=== PATIENT | male | born 1965 | race Caucasian/White ===

== ENCOUNTER 2017-09-05 12:42 | Inpatient (IN) | payer SELFPAY ==
[2017-09-05] MEDS ORDERED: LEVOFLOXACIN 750 MG/D5W RTU 750 MG/150 ML RTUPB IV ONE (12:54)
[2017-09-05] MEDS ORDERED: NORMAL SALINE 1000 ML 1,000 ML IV ONE (12:54)
--- NOTE | 2017-09-05 12:57 | ER Document Report ---
ED Medical Screen (RME) - General Chief Complaint: Testicular Pain Stated Complaint: RIGHT TESTICULAR PAIN, SWELLING Time Seen by Provider: 09/05/17 12:54 Notes: Patient reports approximate 1 week of increasing right testicular pain and swelling. He also some lower abdominal pain. He has had nausea and decreased appetite. He states is also had fevers. TRAVEL OUTSIDE OF THE [place] IN LAST 30 DAYS: No - Related Data Allergies/Adverse Reactions: No Known Allergies Allergy (Verified 11/12/13 17:20) Past Medical History Pulmonary Medical History: Reports: Hx Asthma Neurological Medical History: Reports: Hx Migraine, Hx Seizures Renal/ Medical History: Denies: Hx Peritoneal Dialysis GI Medical History: Reports: Hx Gastroesophageal Reflux Disease Musculoskeltal Medical History: Reports Hx Musculoskeletal Deformity Psychiatric Medical History: Reports: Hx Depression Traumatic Medical History: Reports: Hx Fractures Past Surgical History: Reports: Hx Orthopedic Surgery - Immunizations Immunizations up to date: Yes Hx Diphtheria, Pertussis, Tetanus Vaccination: Yes Physical Exam - Vital signs Vitals: Temp Pulse Resp BP Pulse Ox 98.4 F 120 H 16 96/68 L 95 09/05/17 12:50 09/05/17 12:50 09/05/17 12:50 09/05/17 12:50 09/05/17 12:50 Course - Vital Signs Vital signs: Temp Pulse Resp BP Pulse Ox 98.4 F 120 H 16 96/68 L 95 09/05/17 12:50 09/05/17 12:50 09/05/17 12:50 09/05/17 12:50 09/05/17 12:50
[2017-09-05 13:46] LABS: HEMATOCRIT 47.5 % (37.9-51.0); HEMOGLOBIN 16.1 g/dL (13.5-17.0); MEAN CORPUSCULAR HEMOGLOBIN 29.1 pg (27.0-33.4); MEAN CORPUSCULAR VOLUME 86 fl (80-97); PLATELET COUNT 253 10^3/uL (150-450); RED BLOOD COUNT 5.54 10^6/uL (4.35-5.55); RED CELL DISTRIBUTION WIDTH 13.7 % (11.5-14.0); WHITE BLOOD COUNT 27.5 10^3/uL (4.0-10.5)
[2017-09-05 13:58] LABS: VENOUS BLOOD BASE EXCESS 1.3 mmol/L; VENOUS BLOOD HCO3 25.3 mmol/L (20-32); VENOUS BLOOD PCO2 38.5 mmHg (35-63); VENOUS BLOOD PH 7.44 (7.30-7.42)
[2017-09-05 14:08] LABS: ALANINE AMINOTRANSFERASE 26 U/L (21-72); ALKALINE PHOSPHATASE 86 U/L (38-126); ANION GAP 7 (5-19); ASPARTATE AMINO TRANSFERASE 32 U/L (17-59); BILIRUBIN,DIRECT 0.4 mg/dL (0.0-0.4); BILIRUBIN,TOTAL 1.4 mg/dL (0.2-1.3); BLOOD UREA NITROGEN 14 mg/dL (7-20); CALCIUM 9.1 mg/dL (8.4-10.2); CARBON DIOXIDE 29 mmol/L (22-30); CHLORIDE 100 mmol/L (98-107); GLUCOSE 119 mg/dL (75-110); SODIUM 135.7 mmol/L (137-145); TOTAL PROTEIN 7.8 g/dL (6.3-8.2)
[2017-09-05 14:14] LABS: ABSOLUTE LYMPHOCYTES# (MANUAL) 1.1 10^3/uL (0.5-4.7); ABSOLUTE MONOCYTES # (MANUAL) 2.2 10^3/uL (0.1-1.4); ABSOLUTE NEUTROPHILS# (MANUAL) 24.2 10^3/uL (1.7-8.2); BAND NEUTROPHILS % (MANUAL) 1 % (3-5); BASOPHILS % (MANUAL) 0 % (0-2); EOSINOPHILS % (MANUAL) 0 % (0-6); LYMPHOCYTES % (MANUAL) 4 % (13-45); MONOCYTES % (MANUAL) 8 % (3-13); SEGMENTED NEUTROPHILS % (MAN) 87 % (42-78); TOTAL CELLS COUNTED 100
[2017-09-05 14:16] LABS: PLATELET COMMENT ADEQUATE; RBC MORPHOLOGY COMMENT NORMO-CYTIC/CHROMIC
[2017-09-05] MEDS ORDERED: VANCOMYCIN HCL INJ 1000 MG VIAL IV ONE (14:16)
--- NOTE | 2017-09-05 14:21 | RADIOLOGY REPORT (SQ) ---
EXAM DESCRIPTION: CT ABD/PELVIS NO ORAL OR IV COMPLETED DATE/TIME: 09/05/2017 2:07 pm REASON FOR STUDY: Inguinal hernia on the right side with pain and di COMPARISON: None. TECHNIQUE: CT scan of the abdomen and pelvis performed without intravenous or oral contrast. Images reviewed with lung, soft tissue, and bone windows. Reconstructed coronal and sagittal MPR images revi ewed. All images stored on PACS. All CT scanners at this facility use dose modulation, iterative reconstruction, and/or weight based d osing when appropriate to reduce radiation dose to as low as reasonably achievable (ALARA). [facility]: Dose Right [facility]: CareDose [facility]: Dose Right [facility]: Teradose 4D [facility]: Smart ClearLine Mobile RADIATION DOSE: CT Rad equipment meets quality standard of care and radiation dose reduction techniq ues were employed. CTDIvol: 5.4 mGy. DLP: 342 mGy-cm.mGy. LIMITATIONS: None. FINDINGS: Along the anterior aspect left lower pole kidney, a 5.5 x 4 cm mass is present worrisome f or primary renal cell tumor. This is best shown on sagittal image 61 and axial image 37. Elsewhere throughout the left kidney and ureter, there are no other significant findings. LOWER CHEST: No significant findings. No nodules or infiltrates. NON-CONTRASTED LIVER, SPLEEN, ADRENALS: Evaluation limited by lack of IV contrast. No identified sign ificant masses. PANCREAS: No masses. No peripancreatic inflammatory changes. GALLBLADDER: No identified stones by CT criteria. No inflammatory changes to suggest cholecystitis. RIGHT KIDNEY AND URETER: No suspicious masses. Assessment limited by lack of IV contrast. 2 mm righ t lower pole intrarenal nonobstructive stone axial image 43. No hydronephrosis or hydroureter. LEFT KIDNEY AND URETER: Left renal mass as above worrisome for malignancy AORTA AND RETROPERITONEUM: No aneurysm. No retroperitoneal masses or adenopathy. BOWEL AND PERITONEAL CAVITY: No obvious masses or inflammatory changes. No free fluid. APPENDIX: Normal. PELVIS, BLADDER, AND ABDOMINAL WALL:No abnormal masses. No free fluid. Bladder normal. BONES: No significant findings. OTHER: No other significant finding. IMPRESSION: 5.5 x 4 cm left lower pole renal mass worrisome for malignancy. 2 mm right lower pole intrarenal nonobstructive stone. COMMENT: Quality ID # [id number]: Final reports with documentation of one or more dose reduction techniques (e.g., Automated exposure control, adjustment of the mA and/or kV according to patient size, use of iterative reconstruction technique) TECHNICAL DOCUMENTATION: JOB ID: [id number] [employer]- All Rights Reserved Reading location - IP/workstation name: [email or web address]
--- NOTE | 2017-09-05 14:23 | ER Document Report ---
ED GI/ - General Chief Complaint: Testicular Pain Stated Complaint: RIGHT TESTICULAR PAIN, SWELLING Time Seen by Provider: 09/05/17 12:54 Mode of Arrival: Ambulatory Information source: Patient Notes: History of complain-52 years old male presents today with one-week history of sudden onset of right scrotal pain which gradually increase to the point today that he is has swelling and it is hard tender associated fever chills nausea is. He denies any abdominal pain but been having pain over the right inguinal region. Denies any diarrhea dysuria frequency denies any other constitutional symptoms. REVIEW OF SYSTEMS: CONSTITUTIONAL : Denies fever, chills, or sweats. Denies recent illness. EENT: Denies eye, ear, throat, or mouth pain or symptoms. Denies nasal or sinus congestion or discharge. Denies throat, tongue, or mouth swelling or difficulty swallowing. CARDIOVASCULAR: Denies chest pain. Denies palpitations or racing or irregular heart beat. Denies ankle edema. RESPIRATORY: Denies cough, cold, or chest congestion. Denies shortness of breath, difficulty breathing, or wheezing. GASTROINTESTINAL: Denies abdominal pain or distention. Denies nausea, vomiting , or diarrhea. Denies blood in vomitus, stools, or per rectum. Denies black, tarry stools. Denies constipation. GENITOURINARY: Denies difficulty urinating, painful urination, burning, frequency, blood in urine, or discharge. MUSCULOSKELETAL: Denies back or neck pain or stiffness. Denies joint pain or swelling. SKIN: Denies rash, lesions or sores. HEMATOLOGIC : Denies easy bruising or bleeding. LYMPHATIC: Denies swollen, enlarged glands. NEUROLOGICAL: Denies confusion or altered mental status. Denies passing out or loss of consciousness. Denies dizziness or lightheadedness. Denies headache. Denies weakness or paralysis or loss of use of either side. Denies problems with gait or speech. Denies sensory loss, numbness, or tingling. Denies seizures. PSYCHIATRIC: Denies anxiety or stress. Denies depression, suicidal ideation, or homicidal ideation. ALL OTHER SYSTEMS REVIEWED AND NEGATIVE. Dictation was performed using [employer] voice recognition software PHYSICAL EXAMINATION: GENERAL: Well-appearing, well-nourished and in no acute distress. HEAD: Atraumatic, normocephalic. EYES: Pupils equal round and reactive to light, extraocular movements intact, sclera anicteric, conjunctiva are normal. ENT: Nares patent, oropharynx clear without exudates. Moist mucous membranes. NECK: Normal range of motion, supple without lymphadenopathy LUNGS: Breath sounds clear to auscultation bilaterally and equal. No wheezes rales or rhonchi. HEART: Regular rate and rhythm without murmurs ABDOMEN: Scaphoid, tender over the right inguinal region, with bulging inguinal canal on coughing. Positive bowel sounds Examination of the genital-right scrotum and large size of goose egg. Which is warm and tender and erythematous. Musculoskeletal: Normal range of motion, no pitting or edema. No cyanosis. NEUROLOGICAL: Cranial nerves grossly intact. Normal speech, normal gait. Normal sensory, motor exams PSYCH: Normal mood, normal affect. SKIN: Warm, Dry, normal turgor, no rashes or lesions noted. History of complain TRAVEL OUTSIDE OF THE [place] IN LAST 30 DAYS: No - Related Data Allergies/Adverse Reactions: No Known Allergies Allergy (Verified 11/12/13 17:20) Past Medical History - Social History Smoking Status: Unknown if Ever Smoked Family History: Reviewed & Not Pertinent Patient has suicidal ideation: No Patient has homicidal ideation: No Pulmonary Medical History: Reports: Hx Asthma Neurological Medical History: Reports: Hx Migraine, Hx Seizures Renal/ Medical History: Denies: Hx Peritoneal Dialysis GI Medical History: Reports: Hx Gastroesophageal Reflux Disease Musculoskeltal Medical History: Reports Hx Musculoskeletal Deformity Psychiatric Medical History: Reports: Hx Depression Traumatic Medical History: Reports: Hx Fractures Past Surgical History: Reports: Hx Orthopedic Surgery - Immunizations Immunizations up to date: Yes Hx Diphtheria, Pertussis, Tetanus Vaccination: Yes Physical Exam - Vital signs Vitals: Temp Pulse Resp BP Pulse Ox 98.4 F 120 H 16 96/68 L 95 09/05/17 12:50 09/05/17 12:50 09/05/17 12:50 09/05/17 12:50 09/05/17 12:50 Course - Re-evaluation Re-evalutation: 09/05/17 15:46 Case was discussed with hospitalist and currently patient being admitted - Vital Signs Vital signs: Temp Pulse Resp BP Pulse Ox 98.4 F 120 H 16 96/68 L 95 09/05/17 12:50 09/05/17 12:50 09/05/17 12:50 09/05/17 12:50 09/05/17 12:50 - Laboratory Result Diagrams: 09/05/17 13:15 09/05/17 13:15 Laboratory results interpreted by me: 09/05/17 09/05/17 09/05/17 13:15 13:15 13:15 WBC 27.5 H Seg Neuts % (Manual) 87 H Band Neutrophils % 1 L Lymphocytes % (Manual) 4 L Abs Neuts (Manual) 24.2 H Abs Monocytes (Manual) 2.2 H VBG pH 7.44 H Sodium 135.7 L Glucose 119 H Total Bilirubin 1.4 H - Diagnostic Test Radiology reviewed: Reports reviewed - 1. Scrotal exam reported by radiologist as epididymitis no torsion 2. CT of the abdomen reported as right renal mass Discharge - Discharge Clinical Impression: Epididymitis with no abscess, Renal mass Leukocytosis Qualifiers: Leukocytosis type: bandemia Qualified Code(s): D72.825 - Bandemia Disposition: ADMITTED INPATIENT Admitting Provider: Hospitalist Unit Admitted: Telemetry
--- NOTE | 2017-09-05 15:11 | RADIOLOGY REPORT (SQ) ---
EXAM DESCRIPTION: U/S SCROTUM W/DOPPLER COMPLETED DATE/TIME: 09/05/2017 3:02 pm REASON FOR STUDY: right teste swollen/painful COMPARISON: None. TECHNIQUE: Static and realtime ferguson scale imaging of the scrotum and testes. Selected color Doppler and spectral images recorded to document blood flow. LIMITATIONS: None. FINDINGS: RIGHT: TESTICLE: Normal size. Normal echotexture. Normal blood flow. No mass. EPIDIDYMIS: Hyperemic compared to the left. HYDROCELE OR VARICOCELE: Small hydrocele. HERNIA OR EXTRA-TESTICULAR MASS: No. OTHER: No other significant finding. LEFT: TESTICLE: Normal size. Normal echotexture. Normal blood flow. No mass. EPIDIDYMIS: Small cyst. HYDROCELE OR VARICOCELE: No. HERNIA OR EXTRA-TESTICULAR MASS: No. OTHER: No other significant finding. IMPRESSION: Right epididymitis. TECHNICAL DOCUMENTATION: JOB ID: [id number] [employer]- All Rights Reserved Reading location - IP/workstation name: [email or web address]
[2017-09-05 16:05] LABS: APPEARANCE,URINE CLEAR; BILIRUBIN,URINE NEGATIVE (NEGATIVE); COLOR,URINE YELLOW; GLUCOSE, URINE NEGATIVE (NEGATIVE); KETONES,URINE NEGATIVE (NEGATIVE); LEUKOCYTE ESTERASE,URINE NEGATIVE (NEGATIVE); NITRITE,URINE NEGATIVE (NEGATIVE); PROTEIN,URINE NEGATIVE (NEGATIVE); URINE SPECIFIC GRAVITY 1.017
[2017-09-05] MEDS ORDERED: OXYCODONE-ACETAMINOPHEN 5-325 MG TABLET PO PRN ×2 (16:56→17:35)
[2017-09-05] MEDS ORDERED: ALBUTEROL SULFATE 0.083% NEB 2.5 MG/3 ML AMPUL NEB PRN (16:56)
[2017-09-05] MEDS ORDERED: ACETAMINOPHEN 325 MG TABLET PO PRN ×2 (16:56→17:35)
[2017-09-05] MEDS ORDERED: ONDANSETRON HCL INJ/PF 4 MG/2 ML SDV IV PRN (16:56)
[2017-09-05] MEDS ORDERED: MEROPENEM 500 MG VIAL IV SCH (17:15)
--- NOTE | 2017-09-05 17:38 | RADIOLOGY REPORT (SQ) ---
EXAM DESCRIPTION: CHEST SINGLE VIEW COMPLETED DATE/TIME: 09/05/2017 5:24 pm REASON FOR STUDY: pneumonia COMPARISON: 11/12/2013 EXAM PARAMETERS: NUMBER OF VIEWS: One view. TECHNIQUE: Single frontal radiographic view of the chest acquired. RADIATION DOSE: NA LIMITATIONS: None. FINDINGS: LUNGS AND PLEURA: No opacities, masses or pneumothorax. No pleural effusion. MEDIASTINUM AND HILAR STRUCTURES: No masses. Contour normal. HEART AND VASCULAR STRUCTURES: Heart normal in size. Normal vasculature. BONES: No acute findings. HARDWARE: None in the chest. OTHER: No other significant finding. IMPRESSION: NO ACUTE RADIOGRAPHIC FINDING IN THE CHEST. TECHNICAL DOCUMENTATION: JOB ID: [id number] [employer]- All Rights Reserved Reading location - IP/workstation name: [email or web address]
[2017-09-05] MEDS ORDERED: MEROPENEM 1 GM in NORMAL SALINE 50 ML IV ONE (19:00)
--- NOTE | 2017-09-05 19:57 | PDOC H&P ---
History of Present Illness Admission Date/PCP: 09/05/17 16:11 Patient complains of: right testicular pain, back pain, subjective fever and chills History of Present Illness: ANGE CARRINGTON JR is a 52 year old male with no significant past medical hx described, presents with complaints of 1 week of right testicular pain and swelling progressively worsening. US of testicles showed a right testicular epididymitis. He desribes back pain for the last couple of months and a 20lb wt. loss without change to diet or activity. Describes progressive fatigue over the last 2 months. Patient with noted right abdominal tenderness on exam. Admitted to constipation and urinary retention with difficulty voiding. 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 He denies any recent or new sexual contact. Described subjective fever and chills in the last 24 hours. He is presenting with low normal range BP and a leukocytosis. His lactic acid is not elevated. 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 ABSENT: visual disturbances Ears: PRESENT: as per HPI. ABSENT: hearing changes Nose, Mouth, and Throat: PRESENT: as per HPI. ABSENT: mouth pain Cardiovascular: PRESENT: as per HPI. ABSENT: edema, palpitations Respiratory: PRESENT: as per HPI. ABSENT: dyspnea Gastrointestinal: PRESENT: abdominal pain, constipation. ABSENT: bloating, dysphagia, hematemesis Musculoskeletal: PRESENT: as per HPI. ABSENT: deformity Integumentary: PRESENT: as per HPI. ABSENT: diaphoresis, erythema Neurological: ABSENT: abnormal gait, abnormal movements, focal weakness Psychiatric: PRESENT: as per HPI. ABSENT: hallucinations Physical Exam Vital Signs: Temp Pulse Resp BP Pulse Ox 98.4 F 120 H 16 96/68 L 95 09/05/17 12:50 09/05/17 12:50 09/05/17 12:50 09/05/17 12:50 09/05/17 12:50 General appearance: PRESENT: no acute distress, thin Head exam: PRESENT: atraumatic, normocephalic Eye exam: PRESENT: EOMI, PERRLA Ear exam: PRESENT: normal external ear exam. ABSENT: bleeding Mouth exam: PRESENT: moist, neck supple Neck exam: PRESENT: full ROM. ABSENT: JVD, tenderness Respiratory exam: ABSENT: accessory muscle use, rales, rhonchi, wheezes Cardiovascular exam: PRESENT: RRR, +S1, +S2 Pulses: PRESENT: normal radial pulses GI/Abdominal exam: PRESENT: normal bowel sounds, tenderness - right upper quadrant tenderness. ABSENT: ascites, distended, guarding Extremities exam: ABSENT: calf tenderness, joint swelling Musculoskeletal exam: PRESENT: full ROM. ABSENT: ambulatory Neurological exam: PRESENT: alert, oriented to person, oriented to place, oriented to time, CN II-XII grossly intact Psychiatric exam: PRESENT: agitated. ABSENT: anxious Focused psych exam: ABSENT: delusional, paranoid Skin exam: ABSENT: abrasion, cyanosis Results Impressions: Scrotum Ultrasound 09/05/17 12:56 IMPRESSION: Right epididymitis. Abdomen/Pelvis CT 09/05/17 13:47 IMPRESSION: 5.5 x 4 cm left lower pole renal mass worrisome for malignancy. 2 mm right lower pole intrarenal nonobstructive stone. Chest X-Ray 09/05/17 16:59 IMPRESSION: NO ACUTE RADIOGRAPHIC FINDING IN THE CHEST. Assessment & Plan - Diagnosis (1) Sepsis Is this a current diagnosis for this admission?: Yes Plan: right testicular swelling and signs of epididymitis on US. checking urine culture, blood cultures x2, checking gonnohrea, chlamydia. giving empiric Levaquin/Vanc/Meropenem: given the complication of adrenal mass. (2) Epididymitis with no abscess Is this a current diagnosis for this admission?: Yes Plan: pending culture work up described above. continue empiric levaquin/meropenem/vancomycin (3) Adrenal mass, right Is this a current diagnosis for this admission?: Yes Plan: Concern for malignancy with description of wt. loss, back pain, and progressive fatigue. consulting Oncology for their input. (4) Leukocytosis Qualifiers: Leukocytosis type: bandemia Qualified Code(s): D72.825 - Bandemia Is this a current diagnosis for this admission?: Yes Plan: unclear if this is soley secondary to testicular infection. Broad spectrum coverage at present until cultures result.
[2017-09-05] MEDS ORDERED: INFLUENZA ADLT QUAD (36MOS+) 2017-18 VAC 0.5 ML SYR IM PRN (20:05)
[2017-09-05] MEDS: DOCUSATE SODIUM 100 MG CAPSULE PO SCH (20:09)
[2017-09-05] MEDS: NORMAL SALINE 1000 ML 1,000 ML IV PRN (20:26)
[2017-09-05] MEDS: CYCLOBENZAPRINE HCL 10 MG TABLET PO SCH (21:39)
[2017-09-05] MEDS: VANCOMYCIN HCL 1,000 MG in DEXTROSE 5%-WATER 250 ML IV SCH (21:40)
[2017-09-06] MEDS: MEROPENEM 1 GM in NORMAL SALINE 50 ML IV SCH ×3 (01:03→17:16)
[2017-09-06 01:29] LABS: CHLAM PCR NOT DETECTED (NOT DETECT); GON PCR NOT DETECTED (NOT DETECT)
[2017-09-06] MEDS: CYCLOBENZAPRINE HCL 10 MG TABLET PO SCH ×3 (05:02→20:55)
[2017-09-06 05:16] LABS: ABSOLUTE BASOPHILS # (AUTO) 0.1 10^3/uL (0.0-0.2); ABSOLUTE EOSINOPHILS # (AUTO) 0.1 10^3/uL (0.0-0.6); ABSOLUTE LYMPHOCYTES (AUTO) 2.4 10^3/uL (0.5-4.7); ABSOLUTE MONOCYTES (AUTO) 1.4 10^3/uL (0.1-1.4); ABSOLUTE NEUT (AUTO) 12.2 10^3/uL (1.7-8.2); BASOPHILS % (AUTO) 0.5 % (0-2); EOSINOPHILS % (AUTO) 0.8 % (0-6); HEMATOCRIT 43.5 % (37.9-51.0); HEMOGLOBIN 14.7 g/dL (13.5-17.0); LYMPHOCYTES % (AUTO) 14.9 % (13-45); MEAN CORPUSCULAR HEMOGLOBIN 29.3 pg (27.0-33.4); MEAN CORPUSCULAR HGB CONC 33.8 g/dL (32.0-36.0); MEAN CORPUSCULAR VOLUME 87 fl (80-97); MONOCYTES % (AUTO) 8.8 % (3-13); PLATELET COUNT 216 10^3/uL (150-450); RED BLOOD COUNT 5.02 10^6/uL (4.35-5.55); RED CELL DISTRIBUTION WIDTH 13.6 % (11.5-14.0); TOTAL CELLS COUNTED % (AUTO) 100 %; WHITE BLOOD COUNT 16.3 10^3/uL (4.0-10.5)
[2017-09-06 05:39] LABS: ANION GAP 7 (5-19); BLOOD UREA NITROGEN 14 mg/dL (7-20); CALCIUM 8.6 mg/dL (8.4-10.2); CARBON DIOXIDE 25 mmol/L (22-30); CHLORIDE 106 mmol/L (98-107); GLUCOSE 82 mg/dL (75-110); POTASSIUM 4.5 mmol/L (3.6-5.0); SODIUM 137.7 mmol/L (137-145)
--- NOTE | 2017-09-06 08:45 | PDOC CONSULTATION ---
Consultation Consult Date: 09/06/17 Consult reason:: Hematology/Oncology Consultation was requested for patient with renal mass on CT and elevated WBC count. History of Present Illness Admission Date/PCP: 09/05/17 16:11 History of Present Illness: ANGE CARRINGTON JR is a 52 year old male who presented with complaints of 1 week of right testicular pain and swelling progressively worsening. US of testicles showed a right testicular epididymitis. He described back pain for the last couple of months and a 20lb wt. loss without change to diet or activity. He also described progressive fatigue over the last 2 months. He was admitted and started on antibiotics. His WBC count on admission was 27.5. CT abd/pelvis on admission showed a 5.5 x 4 cm mass in the lower left kidney. Past Medical History Neurological Medical History: Reports: Migraine, Seizures GI Medical History: Reports: Gastroesophageal Reflux Disease Psychiatric Medical History: Reports: Depression Past Surgical History Past Surgical History: Reports: Orthopedic Surgery - Hands/fingers. Social History Occupation: He is single with 2 kids. He is currently living with his mother. Smoking Status: Unknown if Ever Smoked Cigarettes Packs Per Day: 1 - 1 ppd since age 14 Frequency of Alcohol Use: Occasional Hx Recreational Drug Use: Yes - used methamphetamines 1 week ago Drugs: Other - Met. Hx Prescription Drug Abuse: No - Advance Directive Resuscitation Status: Full Code Family History Family History: COPD Parental Family History Reviewed: Yes - Mother with COPD. Children Family History Reviewed: No Sibling(s) Family History Reviewed.: Yes - Brother with lung cancer. Medication/Allergy Home Medications: No Home Medications 09/05/17 Allergies/Adverse Reactions: No Known Allergies Allergy (Verified 11/12/13 17:20) Review of Systems Constitutional: PRESENT: fever(s), weight loss Eyes: ABSENT: visual disturbances Ears: ABSENT: hearing changes Nose, Mouth, and Throat: ABSENT: sore throat Cardiovascular: ABSENT: chest pain Respiratory: ABSENT: cough Gastrointestinal: ABSENT: constipation, nausea Genitourinary: PRESENT: as per HPI Musculoskeletal: PRESENT: back pain, other - neck pain Integumentary: ABSENT: rash Neurological: ABSENT: confusion, frequent falls Psychiatric: PRESENT: depression Hematologic/Lymphatic: ABSENT: lymphadenopathy Physical Exam Vital Signs: Temp Pulse Resp BP Pulse Ox 98.5 F 85 17 119/78 98 09/06/17 07:09 09/06/17 07:09 09/06/17 07:09 09/06/17 07:09 09/06/17 07:09 Intake & Output 09/05/17 09/06/17 09/07/17 06:59 06:59 06:59 Intake Total 1650 Output Total 520 Balance 1130 Weight 63.2 kg General appearance: PRESENT: no acute distress, well-developed, well-nourished Head exam: PRESENT: normocephalic Eye exam: PRESENT: PERRLA Mouth exam: PRESENT: tongue midline Neck exam: ABSENT: lymphadenopathy, tenderness Respiratory exam: PRESENT: clear to auscultation pranav Cardiovascular exam: PRESENT: RRR Pulses: PRESENT: normal dorsalis pedis pul GI/Abdominal exam: PRESENT: soft, tenderness - RLQ Rectal exam: PRESENT: deferred Extremities exam: ABSENT: pedal edema Musculoskeletal exam: PRESENT: normal inspection Neurological exam: PRESENT: alert, awake, oriented to person, oriented to place Psychiatric exam: PRESENT: appropriate affect Focused psych exam: ABSENT: pressured speech Skin exam: PRESENT: normal color Results Laboratory Results: 09/06/17 04:53 09/06/17 04:53 09/06/17 09/06/17 04:53 04:53 WBC 16.3 H RBC 5.02 Hgb 14.7 Hct 43.5 MCV 87 MCH 29.3 MCHC 33.8 RDW 13.6 Plt Count 216 Seg Neutrophils % 75.0 Lymphocytes % 14.9 Monocytes % 8.8 Eosinophils % 0.8 Basophils % 0.5 Absolute Neutrophils 12.2 H Absolute Lymphocytes 2.4 Absolute Monocytes 1.4 Absolute Eosinophils 0.1 Absolute Basophils 0.1 Sodium 137.7 Potassium 4.5 Chloride 106 Carbon Dioxide 25 Anion Gap 7 BUN 14 Creatinine 0.79 Est GFR ( Amer) > 60 Est GFR (Non-Af Amer) > 60 Glucose 82 Calcium 8.6 Magnesium 2.0 Impressions: Scrotum Ultrasound 09/05/17 12:56 IMPRESSION: Right epididymitis. Abdomen/Pelvis CT 09/05/17 13:47 IMPRESSION: 5.5 x 4 cm left lower pole renal mass worrisome for malignancy. 2 mm right lower pole intrarenal nonobstructive stone. Chest X-Ray 09/05/17 16:59 IMPRESSION: NO ACUTE RADIOGRAPHIC FINDING IN THE CHEST. Status: Image reviewed by me Assessment & Plan - Diagnosis (1) Renal mass Plan: Suspicious for cancer. After discussion with Dr. Delgado, I will order CT C/A with contrast for better evaluation. If still appears malignant, then I would consult urology for consideration of cecy-nephrectomy. (2) Leukocytosis Qualifiers: Leukocytosis type: bandemia Qualified Code(s): D72.825 - Bandemia Is this a current diagnosis for this admission?: Yes Plan: Most likely due to the acute infection. It does appear to be improving. Will continue to monitor. - Plan Summary Plan Summary: Thank you for this consultation. I did discuss the plan with Dr. Singh as well. Fell free to call me directly with any questions or concerns.
[2017-09-06] MEDS: NORMAL SALINE 1000 ML 1,000 ML IV PRN (09:11)
[2017-09-06] MEDS: DOCUSATE SODIUM 100 MG CAPSULE PO SCH ×2 (09:11→17:16)
[2017-09-06] MEDS ORDERED: VANCOMYCIN HCL INJ 1000 MG VIAL IV SCH (10:00)
[2017-09-06] MEDS: VANCOMYCIN HCL 1,000 MG in DEXTROSE 5%-WATER 250 ML IV SCH ×2 (10:22→20:49)
[2017-09-06] MEDS ORDERED: ONDANSETRON HCL INJ/PF 4 MG/2 ML SDV IV PRN (10:30)
[2017-09-06] MEDS: LEVOFLOXACIN 500 MG/D5W RTU 500 MG/100 ML RTUPB IV SCH (12:20)
--- NOTE | 2017-09-06 12:54 | RADIOLOGY REPORT (SQ) ---
EXAM DESCRIPTION: CT ABD/PELVIS WITH IV ORAL COMPLETED DATE/TIME: 09/06/2017 12:07 pm REASON FOR STUDY: Renal mass COMPARISON: CT abdomen pelvis 08/17/2008 Abdominal ultrasound 10/28/2008 CT abdomen pelvis 09/05/2017 TECHNIQUE: CT scan of the abdomen and pelvis performed using helical scanning technique with dynamic intravenous contrast injection. Patient drank oral contrast. Images reviewed with lung, soft tissue , and bone windows. Reconstructed coronal and sagittal MPR images reviewed. Delayed images for evalua tion of the urinary system also acquired. All images stored on PACS. All CT scanners at this facility use dose modulation, iterative reconstruction, and/or weight based d osing when appropriate to reduce radiation dose to as low as reasonably achievable (ALARA). [facility]: Dose Right [facility]: CareDose [facility]: Dose Right [facility]: Teradose 4D [facility]: [place] CONTRAST TYPE AND DOSE: contrast/concentration: Isovue 370.00 mg/ml; Total Contrast Delivered: 68.0 ml; Total Saline Delivered: 65.0 ml RENAL FUNCTION: Creatinine 0.8 RADIATION DOSE: CT Rad equipment meets quality standard of care and radiation dose reduction techniq ues were employed. CTDIvol: 5.6 - 7.4 mGy. DLP: 705 mGy-cm.. LIMITATIONS: None. FINDINGS: On yesterday's non contrasted CT, a 5.5 x 4 cm mass is present along the anterior left low er pole kidney measuring 35 Hounsfield units. On today's post contrasted images, this mass enhances to 67 Hounsfield units, worrisome for a primary left lower pole renal cell neoplasm. There is mild adenopathy in the retroperitoneum just inferior to the level of the left renal vein. A 1.6 x 1 cm left para-aortic lymph node is present on axial image 38. A 1.1 x 0.8 cm aortocaval lymp h node is present on axial image 39. There is no CT evidence of left renal vein thrombosis or IVC thrombus. Remainder of the left kidney is otherwise unremarkable. Left ureter unremarkable. LOWER CHEST: No significant findings. No nodules or infiltrates. LIVER: Normal size. 1.6 cm hemangioma left lobe liver image 14. No dilated ducts. SPLEEN: Normal size. No focal lesions. PANCREAS: No masses. No significant calcifications. No adjacent inflammation or peripancreatic fluid collections. Pancreatic duct not dilated. GALLBLADDER: No identified stones by CT criteria. No inflammatory changes to suggest cholecystitis. ADRENAL GLANDS: No significant masses or asymmetry. RIGHT KIDNEY AND URETER: No solid masses. No significant calcifications. No hydronephrosis or hyd roureter. LEFT KIDNEY AND URETER: As above AORTA AND VESSELS: No aneurysm. No dissection. Renal arteries, SMA, celiac without stenosis. RETROPERITONEUM: Mild para-aortic and aortocaval adenopathy as above BOWEL AND PERITONEAL CAVITY: No masses or inflammatory changes. No free fluid or peritoneal masses. Patient drank oral contrast. No evidence of bowel obstruction. APPENDIX: Normal. PELVIS: No mass. No free fluid. Normal bladder. ABDOMINAL WALL: No masses. No hernias. BONES: No significant or acute findings. OTHER: No other significant finding. IMPRESSION: Mass left lower pole kidney worrisome for primary renal tumor. Abnormal para-aortic lym ph nodes are present at the level of the left renal vein. TECHNICAL DOCUMENTATION: JOB ID: [id number] Quality ID # [id number]: Final reports with documentation of one or more dose reduction techniques (e.g., Au tomated exposure control, adjustment of the mA and/or kV according to patient size, use of iterative reconstruction technique) 2010 [employer]- All Rights Reserved Reading location - IP/workstation name: [email or web address]
--- NOTE | 2017-09-06 21:18 | PDOC PROGRESS REPORT ---
Subjective Progress Note for:: 09/06/17 Subjective:: Discussed with patient the results of his repeat CT Abd/pel with contrast. Urology has been requested to follow him. Patient appears to have a likely left renal malignancy. He is gradually improving on antibiotics for his epididmytis, culture negative at present. Patient is clinically stable. Reason For Visit: POSSIBLE MALIGNANCY, INFECTION Physical Exam Vital Signs: Temp Pulse Resp BP Pulse Ox 98.8 F 100 16 108/61 99 09/06/17 19:36 09/06/17 19:36 09/06/17 19:36 09/06/17 19:36 09/06/17 19:36 Intake & Output 09/05/17 09/06/17 09/07/17 06:59 06:59 06:59 Intake Total 1650 2651 Output Total 520 700 Balance 1130 1951 Weight 63.2 kg General appearance: PRESENT: no acute distress, cooperative Head exam: PRESENT: atraumatic, normocephalic Eye exam: PRESENT: EOMI, PERRLA Ear exam: PRESENT: normal external ear exam. ABSENT: bleeding Mouth exam: PRESENT: moist, neck supple Respiratory exam: ABSENT: crackles, rales, rhonchi, wheezes Cardiovascular exam: PRESENT: RRR, +S1, +S2 Pulses: PRESENT: normal radial pulses, normal dorsalis pedis pul Vascular exam: PRESENT: normal capillary refill. ABSENT: pallor GI/Abdominal exam: PRESENT: normal bowel sounds, tenderness. ABSENT: distended Extremities exam: ABSENT: calf tenderness, joint swelling Musculoskeletal exam: PRESENT: ambulatory, full ROM Neurological exam: PRESENT: alert, oriented to person, oriented to place, oriented to time, oriented to situation, CN II-XII grossly intact Psychiatric exam: ABSENT: agitated, anxious, manic Focused psych exam: ABSENT: delusional, paranoid Skin exam: ABSENT: dry, mottled, pallor Results Laboratory Results: 09/06/17 04:53 09/06/17 04:53 09/06/17 09/06/17 04:53 04:53 WBC 16.3 H RBC 5.02 Hgb 14.7 Hct 43.5 MCV 87 MCH 29.3 MCHC 33.8 RDW 13.6 Plt Count 216 Seg Neutrophils % 75.0 Lymphocytes % 14.9 Monocytes % 8.8 Eosinophils % 0.8 Basophils % 0.5 Absolute Neutrophils 12.2 H Absolute Lymphocytes 2.4 Absolute Monocytes 1.4 Absolute Eosinophils 0.1 Absolute Basophils 0.1 Sodium 137.7 Potassium 4.5 Chloride 106 Carbon Dioxide 25 Anion Gap 7 BUN 14 Creatinine 0.79 Est GFR ( Amer) > 60 Est GFR (Non-Af Amer) > 60 Glucose 82 Calcium 8.6 Magnesium 2.0 Impressions: Scrotum Ultrasound 09/05/17 12:56 IMPRESSION: Right epididymitis. Chest X-Ray 09/05/17 16:59 IMPRESSION: NO ACUTE RADIOGRAPHIC FINDING IN THE CHEST. Abdomen/Pelvis CT 09/06/17 00:00 IMPRESSION: Mass left lower pole kidney worrisome for primary renal tumor. Abnormal para-aortic lymph nodes are present at the level of the left renal vein. Assessment & Plan - Time Time Spent with patient: 15-24 minutes - Inpatient Certification Based on my medical assessment, after consideration of the patient's comorbidities, presenting symptoms, or acuity I expect that the services needed warrant INPATIENT care.: Yes Medical Necessity: Need for IV Antibiotics, Risk of Complication if Not Cared For in Hospital - Plan Summary Plan Summary: (1) Sepsis Is this a current diagnosis for this admission?: Yes Plan: right testicular swelling and signs of epididymitis on US. no growth on urine culture, blood cultures x2, negative gonnohrea, chlamydia. giving empiric Levaquin/Vanc/Meropenem: improving sepsis picture, decreasing leukocytosis. (2) Epididymitis with no abscess Is this a current diagnosis for this admission?: Yes Plan: pending culture work up described above. continue empiric levaquin/meropenem/vancomycin (3) Left kidney mass Is this a current diagnosis for this admission?: Yes Plan: concerning for RCC. Oncology following. consulted Urology. continue supportive care (4) Leukocytosis Qualifiers: Leukocytosis type: bandemia Qualified Code(s): D72.825 - Bandemia Is this a current diagnosis for this admission?: Yes Plan: improving, continue current coverage at present.
[2017-09-07] MEDS: MEROPENEM 1 GM in NORMAL SALINE 50 ML IV SCH ×2 (01:51→09:41)
[2017-09-07] MEDS: CYCLOBENZAPRINE HCL 10 MG TABLET PO SCH ×2 (05:17→13:22)
[2017-09-07 06:33] LABS: HEMATOCRIT 43.6 % (37.9-51.0); HEMOGLOBIN 14.9 g/dL (13.5-17.0); MEAN CORPUSCULAR HEMOGLOBIN 29.5 pg (27.0-33.4); MEAN CORPUSCULAR HGB CONC 34.1 g/dL (32.0-36.0); MEAN CORPUSCULAR VOLUME 86 fl (80-97); PLATELET COUNT 209 10^3/uL (150-450); RED BLOOD COUNT 5.04 10^6/uL (4.35-5.55); RED CELL DISTRIBUTION WIDTH 13.6 % (11.5-14.0); WHITE BLOOD COUNT 7.8 10^3/uL (4.0-10.5)
[2017-09-07 06:50] LABS: ALBUMIN 3.2 g/dL (3.5-5.0); ANION GAP 8 (5-19); BLOOD UREA NITROGEN 19 mg/dL (7-20); CALCIUM 8.5 mg/dL (8.4-10.2); CARBON DIOXIDE 25 mmol/L (22-30); CHLORIDE 104 mmol/L (98-107); GLUCOSE 85 mg/dL (75-110); PHOSPHORUS 3.3 mg/dL (2.5-4.5); POTASSIUM 4.5 mmol/L (3.6-5.0); SODIUM 137.3 mmol/L (137-145)
[2017-09-07 10:45] LABS: VANCOMYCIN,TROUGH 6.2 ug/mL (5.0-20.0)
[2017-09-07] MEDS: DOCUSATE SODIUM 100 MG CAPSULE PO SCH (10:47)
--- NOTE | 2017-09-07 10:47 | PDOC CONSULTATION ---
Consultation Consult Date: 09/07/17 Consult reason:: 1. Right epididymoorchitis. 2. Left renal malignancy, with intraaortocaval and left periaortic eduardo disease. History of Present Illness Admission Date/PCP: 09/05/17 16:11 Past Medical History Pulmonary Medical History: Reports: Asthma Neurological Medical History: Reports: Migraine, Seizures GI Medical History: Reports: Gastroesophageal Reflux Disease Psychiatric Medical History: Reports: Depression Past Surgical History Past Surgical History: Reports: Orthopedic Surgery - Hands/fingers. 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 Hx Prescription Drug Abuse: No - Advance Directive Resuscitation Status: Full Code Family History Family History: COPD Parental Family History Reviewed: No Children Family History Reviewed: No Sibling(s) Family History Reviewed.: No Medication/Allergy Home Medications: No Home Medications 09/05/17 Allergies/Adverse Reactions: No Known Allergies Allergy (Verified 11/12/13 17:20) Physical Exam Vital Signs: Temp Pulse Resp BP Pulse Ox 98.6 F 78 18 121/90 H 100 09/07/17 07:08 09/07/17 07:08 09/07/17 07:08 09/07/17 07:08 09/07/17 07:08 Intake & Output 09/06/17 09/07/17 09/08/17 06:59 06:59 06:59 Intake Total 1650 4271 Output Total 520 1180 Balance 1130 3091 Weight 63.2 kg 66.4 kg Results Laboratory Results: 09/07/17 05:27 09/07/17 09/07/17 05:27 05:27 WBC 7.8 RBC 5.04 Hgb 14.9 Hct 43.6 MCV 86 MCH 29.5 MCHC 34.1 RDW 13.6 Plt Count 209 Sodium 137.3 Potassium 4.5 Chloride 104 Carbon Dioxide 25 Anion Gap 8 BUN 19 Creatinine 0.78 Est GFR ( Amer) > 60 Est GFR (Non-Af Amer) > 60 Glucose 85 Calcium 8.5 Phosphorus 3.3 Albumin 3.2 L Impressions: Scrotum Ultrasound 09/05/17 12:56 IMPRESSION: Right epididymitis. Chest X-Ray 09/05/17 16:59 IMPRESSION: NO ACUTE RADIOGRAPHIC FINDING IN THE CHEST. Abdomen/Pelvis CT 09/06/17 00:00 IMPRESSION: Mass left lower pole kidney worrisome for primary renal tumor. Abnormal para-aortic lymph nodes are present at the level of the left renal vein.
[2017-09-07] MEDS: VANCOMYCIN HCL 1,000 MG in DEXTROSE 5%-WATER 250 ML IV SCH (10:48)
[2017-09-07] MEDS: LEVOFLOXACIN 500 MG/D5W RTU 500 MG/100 ML RTUPB IV SCH (13:21)
[2017-09-07] MEDS ORDERED: CEFTRIAXONE INJ 250 MG VIAL IM ONE ×2 (14:21→15:30)
[2017-09-07 14:46] VITALS: BP 107/69
[2017-09-07] MEDS ORDERED: LIDOCAINE HCL 1% INJ (FOR 250 MG VIAL) INJ ONE (15:30)
[2017-09-07] MEDS ORDERED: MEROPENEM 1 GM in NORMAL SALINE 100 ML IV SCH (18:00)
--- NOTE | 2017-09-07 22:44 | PDOC DISCHARGE SUMMARY ---
General - Admit/Disc Date/PCP Admission Date/Primary Care Provider: 09/05/17 16:11 Discharge Date: 09/07/17 - Discharge Diagnosis (1) Sepsis Is this a current diagnosis for this admission?: Yes (2) Epididymitis with no abscess Is this a current diagnosis for this admission?: Yes (3) Leukocytosis Is this a current diagnosis for this admission?: Yes (4) Renal mass Is this a current diagnosis for this admission?: Yes - Additional Information Resuscitation Status: Full Code Discharge Diet: Regular Discharge Activity: Activity As Tolerated Prescriptions: Acetaminophen [Tylenol 325 mg Tablet] 650 mg PO Q4HP PRN #30 tablet PRN Reason: Levofloxacin [Levaquin 500 mg Tablet] 500 mg PO DAILY #10 tablet Oxycodone HCl/Acetaminophen [Percocet 5-325 mg Tablet] 1 tab PO Q6HP PRN 4 Days #16 tablet PRN Reason: Home Medications: Acetaminophen [Tylenol 325 mg Tablet] 650 mg PO Q4HP PRN #30 tablet 09/07/17 Levofloxacin [Levaquin 500 mg Tablet] 500 mg PO DAILY #10 tablet 09/07/17 Oxycodone HCl/Acetaminophen [Percocet 5-325 mg Tablet] 1 tab PO Q6HP PRN 4 Days #16 tablet 09/07/17 History of Present Illness Patient complains of: Complained of testicular pain History of Present Illness: ANGE CARRINGTON JR is a 52 year old male with no significant past medical hx described, presents with complaints of 1 week of right testicular pain and swelling progressively worsening. US of testicles showed a right testicular epididymitis. He desribes back pain for the last couple of months and a 20lb wt. loss without change to diet or activity. Describes progressive fatigue over the last 2 months. Patient with noted right abdominal tenderness on exam. Admitted to constipation and urinary retention with difficulty voiding. 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 He denies any recent or new sexual contact. Described subjective fever and chills in the last [address] abdomen pelvis showed a left renal mass. A follow-up CT abdomen pelvis with contrast to better define the left renal mass concerning for malignancy. Oncology and urology were consulted on this case. He is presenting with low normal range BP and a leukocytosis. His lactic acid was not elevated. Hospital Course Hospital Course: Patient was given Meropenem, Vancomycin, and Levaquin initially as his epididimytis and left renal mass was further evaluated in the setting of sepsis. Patient's leukocytosis normalized. Gonorrhea and chlamydial testing were negative. Patient's urine and blood cultures were negative for growth. Patient clinically improved during his hospital stay. Vancomycin was discontinued. Patient was de-escalated to Levaquin only. A 250 mg IM shot of ceftriaxone was given. Patient will complete a 10 day course of p.o. Levaquin in the outpatient setting. Patient was given Percocet treatment for his testicular pain. Patient was asked to follow-up with Dr. Snider in urology in the next 2 weeks. Plan has been made to refer him out to a tertiary care center after he completes his course of antibiotics for further evaluation and treatment of his left renal mass which is concerning on CT imaging for being renal cell carcinoma. Abnormal paraortic lymph nodes were also found on CT. Patient was made aware of all these details and is in agreement with the plan. A follow-up with the care clinic is also been requested as this patient does not have a primary care provider and currently has several medical problems in which he would benefit from outpatient guidance. Physical Exam Vital Signs: Temp Pulse Resp BP Pulse Ox 97.4 F 84 18 107/69 96 09/07/17 14:44 09/07/17 14:44 09/07/17 14:44 09/07/17 14:44 09/07/17 14:44 Intake & Output 09/06/17 09/07/17 09/08/17 06:59 06:59 06:59 Intake Total 1650 4271 Output Total 520 1180 Balance 1130 3091 Weight 63.2 kg 66.4 kg General appearance: PRESENT: no acute distress, cooperative Head exam: PRESENT: atraumatic, normocephalic Eye exam: PRESENT: EOMI, PERRLA Ear exam: PRESENT: normal external ear exam. ABSENT: bleeding Mouth exam: PRESENT: moist, neck supple Respiratory exam: ABSENT: crackles, rales, rhonchi, wheezes Cardiovascular exam: PRESENT: RRR, +S1, +S2 Pulses: PRESENT: normal radial pulses, normal dorsalis pedis pul Vascular exam: PRESENT: normal capillary refill. ABSENT: pallor GI/Abdominal exam: PRESENT: normal bowel sounds, tenderness. ABSENT: distended Extremities exam: ABSENT: calf tenderness, joint swelling Musculoskeletal exam: PRESENT: ambulatory, full ROM Neurological exam: PRESENT: alert, oriented to person, oriented to place, oriented to time, oriented to situation, CN II-XII grossly intact Psychiatric exam: ABSENT: agitated, anxious, manic Focused psych exam: ABSENT: delusional, paranoid Skin exam: ABSENT: dry, mottled, pallor Results Laboratory Results: 09/07/17 05:27 09/07/17 09:50 09/07/17 09/07/17 09/07/17 05:27 05:27 09:50 WBC 7.8 RBC 5.04 Hgb 14.9 Hct 43.6 MCV 86 MCH 29.5 MCHC 34.1 RDW 13.6 Plt Count 209 Sodium 137.3 Potassium 4.5 Chloride 104 Carbon Dioxide 25 Anion Gap 8 BUN 19 Creatinine 0.78 0.70 Est GFR ( Amer) > 60 > 60 Est GFR (Non-Af Amer) > 60 > 60 Glucose 85 Calcium 8.5 Phosphorus 3.3 Albumin 3.2 L Impressions: Scrotum Ultrasound 09/05/17 12:56 IMPRESSION: Right epididymitis. Chest X-Ray 09/05/17 16:59 IMPRESSION: NO ACUTE RADIOGRAPHIC FINDING IN THE CHEST. Abdomen/Pelvis CT 09/06/17 00:00 IMPRESSION: Mass left lower pole kidney worrisome for primary renal tumor. Abnormal para-aortic lymph nodes are present at the level of the left renal vein. Qualifiers - * PATEINT BEING DISCHARGED WITH ANY OF THE FOLLOWING DIAGNOSIS?: No Plan Discharge Plan: (1) Sepsis Resolved (2) Epididymitis with no abscess Sent home with 10 days of Levaquin therapy. (3) Left kidney mass concerning for RCC. Urology to follow patient in the next 2-3 weeks, plan to refer them to tertiary care center for left nephrectomy and further workup. (4) Leukocytosis Resolved Discharge plan Discharge disposition was home discharge condition was good discharge diet was regular discharge activities as tolerated Follow-up requested with Dr. Snider in urology in the next 2 weeks Up requested with the care clinic in the next 1 week. Time Spent: Greater than 30 Minutes
== END 2017-09-07 15:30 | disposition home or self-care (01) | DRG 872 ==
LOC: ER 12:42 → EH 16:11 → 4N 19:27
PROVIDERS: ADMIT Internal Medicine; ATTEND Internal Medicine
PROC: 3E0F73Z Introduction of Anti-inflammatory into Respiratory Tract, Via Natural or Artificial Opening (ICD-10-PCS; principal; 2017-09-07)
DX: A41.9 Sepsis, unspecified organism (principal); C64.2 Malignant neoplasm of left kidney, except renal pelvis; N45.1 Epididymitis; N28.89 Other specified disorders of kidney and ureter; N45.3 Epididymo-orchitis; J45.909 Unspecified asthma, uncomplicated; G43.909 Migraine, unspecified, not intractable, without status migrainosus; K21.9 Gastro-esophageal reflux disease without esophagitis; F32.9 Major depressive disorder, single episode, unspecified; F17.210 Nicotine dependence, cigarettes, uncomplicated; R63.4 Abnormal weight loss; Z68.21 Body mass index [BMI] 21.0-21.9, adult; Z79.899 Other long term (current) drug therapy; Z83.6 Family history of other diseases of the respiratory system; Z80.1 Family history of malignant neoplasm of trachea, bronchus and lung
CPT/HCPCS: 36415; 71045; 74176; 74177; 76870; 80048; 80053; 80069; 80202; 81001; 82565; 82803; 83605; 83735; 85025; 85027; 87040; 87086; 87491; 87591; 93976; 96365; 96366; 99285; J0696; J1956; J2185; J3370; J3490; J7030; J7060

== ENCOUNTER 2018-04-12 12:45 | Emergency (ER) | payer SELFPAY ==
[2018-04-12 12:50] VITALS: BP 121/75
--- NOTE | 2018-04-12 13:39 | ER Document Report ---
ED Medical Screen (RME) - General Chief Complaint: Knee Pain Stated Complaint: SWOLLEN KNEE Time Seen by Provider: 04/12/18 13:32 Mode of Arrival: Ambulatory Information source: Patient Notes: 52-year-old male presents emergency department complaints of left knee pain. Patient states that the knee feels like it is popping out of place. He states that it will frequently give out on him. He states that this is been present for the last 6 months. He denies any injury to his left knee. He denies any swelling. Patient states that he also wants to have his kidneys evaluated. Patient states that he was diagnosed with kidney cancer a couple of months ago. He has not followed up with a primary care physician or oncologist for his cancer. Patient denies any fever, chills, nausea, vomiting, abdominal pain, numbness, tingling, weakness.. I have greeted and performed a rapid initial assessment of this patient. A comprehensive ED assessment and evaluation of the patient, analysis of test results and completion of the medical decision making process will be conducted by additional ED providers. PHYSICAL EXAMINATION: GENERAL: Well-appearing, well-nourished and in no acute distress. HEAD: Atraumatic, normocephalic. EYES: Pupils equal round extraocular movements intact, conjunctiva are normal. ENT: Nares patent NECK: Normal range of motion LUNGS: No respiratory distress Musculoskeletal: Normal range of motion of L knee. NEUROLOGICAL: Normal speech, normal gait. PSYCH: Normal mood, normal affect. SKIN: Warm, Dry, normal turgor, no rashes or lesions noted. TRAVEL OUTSIDE OF THE [place] IN LAST 30 DAYS: No - Related Data Allergies/Adverse Reactions: No Known Allergies Allergy (Verified 04/12/18 12:47) Past Medical History Pulmonary Medical History: Reports: Hx Asthma Neurological Medical History: Reports: Hx Migraine, Hx Seizures Renal/ Medical History: Denies: Hx Peritoneal Dialysis GI Medical History: Reports: Hx Gastroesophageal Reflux Disease Musculoskeltal Medical History: Reports Hx Musculoskeletal Deformity Psychiatric Medical History: Reports: Hx Depression Traumatic Medical History: Reports: Hx Fractures Past Surgical History: Reports: Hx Orthopedic Surgery - Hands/fingers. - Immunizations Immunizations up to date: Yes Hx Diphtheria, Pertussis, Tetanus Vaccination: Yes History of Influenza Vaccine for 03/2017 - 08/2017 Season: No Physical Exam - Vital signs Vitals: Temp Pulse Resp BP Pulse Ox 97.6 F 78 16 121/75 98 04/12/18 12:49 04/12/18 12:49 04/12/18 12:49 04/12/18 12:49 04/12/18 12:49 Course - Vital Signs Vital signs: Temp Pulse Resp BP Pulse Ox 97.6 F 78 16 121/75 98 04/12/18 12:49 04/12/18 12:49 04/12/18 12:49 04/12/18 12:49 04/12/18 12:49
--- NOTE | 2018-04-12 14:19 | RADIOLOGY REPORT (SQ) ---
EXAM DESCRIPTION: KNEE LEFT 4 VIEW COMPLETED DATE/TIME: 04/12/2018 2:08 pm REASON FOR STUDY: pain COMPARISON: None. NUMBER OF VIEWS: Four views. TECHNIQUE: AP, lateral, and both oblique radiographic images acquired of the left knee. LIMITATIONS: None. FINDINGS: MINERALIZATION: Normal. BONES: No acute fracture or dislocation. No worrisome bone lesions. JOINT: Probable suprapatellar joint effusion. SOFT TISSUES: No soft tissue swelling. No radio-opaque foreign body. OTHER: No other significant finding. IMPRESSION: PROBABLE JOINT EFFUSION. NO ACUTE BONY FINDINGS. TECHNICAL DOCUMENTATION: JOB ID: [id number] [employer]- All Rights Reserved Reading location - IP/workstation name: [email or web address]
--- NOTE | 2018-04-12 14:52 | ER Document Report ---
ED Extremity Problem, Lower - General Mode of Arrival: Ambulatory Information source: Patient TRAVEL OUTSIDE OF THE [place] IN LAST 30 DAYS: No <LOWELL MORILLO - Last Filed: 04/12/18 15:04> <WILIAM COX - Last Filed: 04/12/18 16:27> - General Chief Complaint: Knee Pain Stated Complaint: SWOLLEN KNEE Time Seen by Provider: 04/12/18 13:32 Notes: 52-year-old male who presents to the emergency department today with complaints of left knee pain. By history, patient states that he frequently is climbing ladders and carrying heavy objects up the ladder with him. Patient was asked about the renal cell carcinoma that was found the last time he was here in how his follow-up went. Patient states he followed up with Dr. Snider as directed who then referred him to [place]. Patient states he did not have any insurance so he did not go to [place]. Patient denies any trauma or history of gout. (LOWELL MORILLO) - Related Data Allergies/Adverse Reactions: No Known Allergies Allergy (Verified 04/12/18 12:47) Past Medical History - General Information source: Patient - Social History Smoking Status: Current Every Day Smoker Cigarette use (# per day): Yes Family History: COPD Patient has suicidal ideation: No Patient has homicidal ideation: No Pulmonary Medical History: Reports: Hx Asthma Neurological Medical History: Reports: Hx Migraine, Hx Seizures Malignancy Medical History: Reports Hx Renal (Kidney) Cancer - renal cell carcinoma GI Medical History: Reports: Hx Gastroesophageal Reflux Disease Musculoskeletal Medical History: Reports Hx Musculoskeletal Deformity Psychiatric Medical History: Reports: Hx Depression Traumatic Medical History: Reports: Hx Fractures Past Surgical History: Reports: Hx Orthopedic Surgery - Hands/fingers. - Immunizations Immunizations up to date: Yes Hx Diphtheria, Pertussis, Tetanus Vaccination: Yes <LOWELL MORILLO - Last Filed: 04/12/18 15:04> Review of Systems - Review of Systems Constitutional: No symptoms reported EENT: No symptoms reported Cardiovascular: No symptoms reported Respiratory: No symptoms reported Gastrointestinal: No symptoms reported Genitourinary: No symptoms reported Male Genitourinary: No symptoms reported Musculoskeletal: See HPI, Joint pain - left knee Skin: No symptoms reported Hematologic/Lymphatic: No symptoms reported Neurological/Psychological: No symptoms reported -: Yes All other systems reviewed and negative <LOWELL MORILLO - Last Filed: 04/12/18 15:04> Physical Exam <LOWELL MORILLO - Last Filed: 04/12/18 15:04> <WILIAM COX - Last Filed: 04/12/18 16:27> - Vital signs Vitals: Temp Pulse Resp BP Pulse Ox 97.6 F 78 16 121/75 98 04/12/18 12:49 04/12/18 12:49 04/12/18 12:49 04/12/18 12:49 04/12/18 12:49 - Notes Notes: Physical Exam: General: Alert, appears well. HEENT: Normocephalic. Atraumatic. PERRLA. Extraocular movements intact. Oropharynx clear. Neck: Supple. Respiratory: No respiratory distress. Abdominal: Normal Inspection. No distension. Extremities: Small left knee effusion with slight tenderness. No collateral ligament tenderness with palpation. Neurological: Normal cognition. AAOx4. Normal speech. Psychological: Normal affect. Normal Mood. Skin: Warm. Dry. Normal color. (YISELLOWELL) Course - Laboratory Result Diagrams: 04/12/18 14:34 04/12/18 14:34 <LOWELL MORILLO - Last Filed: 04/12/18 15:04> - Laboratory Result Diagrams: 04/12/18 14:34 04/12/18 14:34 <WILIAM COX - Last Filed: 04/12/18 16:27> - Re-evaluation Re-evalutation: 04/12/18 16:07 When I went back to speak with the patient about his x-ray and laboratory findings and to discuss my conversation with Dr. Fowler, The patient was sleeping soundly, and was very difficult to get him to wake up and pay any attention at all. His significant other recognize this, indicated this was not unusual, and she was given all the discharge instructions. She did also ask about his complaints of his hands being numb much of the time. He did not mention that to me, and he will not really wake up at this time. From her descriptions of how he acts when his hands are numb, I suspect he has carpal tunnel syndrome. I told her how to check for numbness or the lack of numbness in the fifth fingers to help determine if that is the case. Either way he can follow-up with [facility] for surgery for his hand numbness and his knee problem. (WILIAM COX) - Vital Signs Vital signs: Temp Pulse Resp BP Pulse Ox 97.6 F 78 16 121/75 98 04/12/18 12:49 04/12/18 12:49 04/12/18 12:49 04/12/18 12:49 04/12/18 12:49 - Laboratory Laboratory results interpreted by me: 04/12/18 14:34 Carbon Dioxide 31 H Glucose 116 H Discharge <LOWELL MORILLO - Last Filed: 04/12/18 15:04> <WILIAM COX - Last Filed: 04/12/18 16:27> - Discharge Clinical Impression: Knee effusion, left, Left kidney mass Condition: Stable Disposition: HOME, SELF-CARE Additional Instructions: Chondromalacia Your knee pain is probably due to cartilage irritation under the knee cap. This is called chondromalacia. It occurs when the knee cap isn't lined up perfectly on the joint. The cartilage on the back of the knee cap rubs on the bone. Climbing stairs and rising from a chair often cause pain. Chondromalacia is most common in young and active people. Treat the pain with ice packs and anti-inflammatory pain medicine. Avoid activities that make the pain worse. Isometric exercises to strengthen the quadriceps (thigh) muscle may help prevent further episodes. (Deep-knee bends and "quad machine" weight-lifting tend to make it worse.) In some cases, shoe inserts to correct imbalances in the legs or feet may be prescribed. Support for the knee cap with a light brace may also be helpful. Return if the knee becomes more swollen and painful, or if the symptoms aren't improving with time. Carefully read the instructions listed above about chondromalacia. Use crutches for the next few days and limit any weightbearing on the left knee. Take ibuprofen 800 mg every 8 hours for pain and inflammation. Elevate your leg as much as possible. Follow-up with Dr. Wolfe on Sunday at 3:30 PM for your kidney cancer. Follow-up with a local medical doctor or with [facility] for Surgery for your knee if not improving. Referrals: ALLEN WOLFE MD [ACTIVE STAFF] - 04/15/18 3:30 pm [facility] [Provider Group] - Follow up as needed Scribe Attestation: 04/12/18 15:17 I personally performed the services described in the documentation, reviewed and edited the documentation which was dictated to the scribe in my presence, and it accurately records my words and actions. (WILIAM COX) Scribe Documentation - Scribe Written by Scribe:: Marlin Gallegos, 04/12/2018 1508 acting as scribe for :: Brianne <LOWELL MORILLO - Last Filed: 04/12/18 15:04>
[2018-04-12 14:58] LABS: EOSINOPHILS % (AUTO) 5.4 % (0-6); HEMATOCRIT 46.3 % (37.9-51.0); HEMOGLOBIN 16.2 g/dL (13.5-17.0); LYMPHOCYTES % (AUTO) 34.7 % (13-45); MEAN CORPUSCULAR HEMOGLOBIN 30.3 pg (27.0-33.4); MEAN CORPUSCULAR HGB CONC 34.9 g/dL (32.0-36.0); MEAN CORPUSCULAR VOLUME 87 fl (80-97); PLATELET COUNT 154 10^3/uL (150-450); RED BLOOD COUNT 5.34 10^6/uL (4.35-5.55); RED CELL DISTRIBUTION WIDTH 13.7 % (11.5-14.0); SEGMENTED NEUTROPHILS % (AUTO) 47.9 % (42-78); WHITE BLOOD COUNT 6.4 10^3/uL (4.0-10.5)
[2018-04-12 14:59] LABS: ABSOLUTE BASOPHILS # (AUTO) 0.1 10^3/uL (0.0-0.2); ABSOLUTE EOSINOPHILS # (AUTO) 0.3 10^3/uL (0.0-0.6); ABSOLUTE LYMPHOCYTES (AUTO) 2.2 10^3/uL (0.5-4.7); ABSOLUTE MONOCYTES (AUTO) 0.7 10^3/uL (0.1-1.4); ABSOLUTE NEUT (AUTO) 3.1 10^3/uL (1.7-8.2); ALANINE AMINOTRANSFERASE 22 U/L (21-72); ALBUMIN 3.7 g/dL (3.5-5.0); ALKALINE PHOSPHATASE 71 U/L (38-126); ANION GAP 9 (5-19); ASPARTATE AMINO TRANSFERASE 38 U/L (17-59); BILIRUBIN,DIRECT 0.4 mg/dL (0.0-0.4); BILIRUBIN,TOTAL 0.9 mg/dL (0.2-1.3); BLOOD UREA NITROGEN 15 mg/dL (7-20); CALCIUM 8.9 mg/dL (8.4-10.2); CARBON DIOXIDE 31 mmol/L (22-30); CHLORIDE 102 mmol/L (98-107); GLUCOSE 116 mg/dL (75-110); POTASSIUM 3.7 mmol/L (3.6-5.0); SODIUM 142.1 mmol/L (137-145); TOTAL CELLS COUNTED % (AUTO) 100 %; TOTAL PROTEIN 6.9 g/dL (6.3-8.2)
[2018-04-12 15:08] LABS: URIC ACID 5.1 mg/dL (3.5-8.5)
== END 2018-04-12 14:30 | disposition home or self-care (01) ==
LOC: ER 12:45
DX: M25.462 Effusion, left knee (principal); N28.89 Other specified disorders of kidney and ureter; M25.562 Pain in left knee; F17.210 Nicotine dependence, cigarettes, uncomplicated; J45.909 Unspecified asthma, uncomplicated
CPT/HCPCS: 36415; 80053; 84550; 85025; 99284

== ENCOUNTER → 2018-04-24 | Outpatient (CLI) | payer OTHER ==
--- NOTE | 2018-04-24 11:18 | RADIOLOGY REPORT (SQ) ---
EXAM DESCRIPTION: CT CHEST WITH COMPLETED DATE/TIME: 04/24/2018 9:57 am REASON FOR STUDY: KIDNEY MASS N28.89 OTHER SPECIFIED DISORDERS OF KIDNEY AND URETER COMPARISON: None. TECHNIQUE: CT scan of the chest performed using helical scanning technique with dynamic intravenous contrast injection. Images reviewed with lung, soft tissue and bone windows. Reconstructed coronal and sagittal MPR and MIP images reviewed. All images stored on PACS. All CT scanners at this facility use dose modulation, iterative reconstruction, and/or weight based d osing when appropriate to reduce radiation dose to as low as reasonably achievable (ALARA). [facility]: Dose Right [facility]: CareDose [facility]: Dose Right [facility]: Teradose 4D [facility]: [id number] CONTRAST TYPE AND DOSE: See separate report of the same date. RENAL FUNCTION: See separate report of the same date. RADIATION DOSE: . LIMITATIONS: None. FINDINGS: LUNGS AND PLEURA: Paraseptal emphysema. No opacities, nodules, masses. No pneumothorax. No effusions. HILAR AND MEDIASTINAL STRUCTURES: No identified masses or abnormal nodes. HEART AND VASCULAR STRUCTURES: No aneurysm or dissection. No central pulmonary emboli. No pericardi al effusion. HARDWARE: None in the chest. UPPER ABDOMEN: See separate report of the CT of the abdomen. THYROID AND OTHER SOFT TISSUES: No masses. No adenopathy. BONES: No acute findings. OTHER: No other significant finding. IMPRESSION: No evidence of metastatic disease. TECHNICAL DOCUMENTATION: JOB ID: [id number] Quality ID # [id number]: Final reports with documentation of one or more dose reduction techniques (e.g., Au tomated exposure control, adjustment of the mA and/or kV according to patient size, use of iterative reconstruction technique) 2010 [email or web address]- All Rights Reserved Reading location - IP/workstation name: [email or web address]
--- NOTE | 2018-04-24 11:35 | RADIOLOGY REPORT (SQ) ---
EXAM DESCRIPTION: CT ABD/PELVIS WITH IV ORAL COMPLETED DATE/TIME: 04/24/2018 9:57 am REASON FOR STUDY: KIDNEY MASS N28.89 OTHER SPECIFIED DISORDERS OF KIDNEY AND URETER COMPARISON: 08/28/2017 TECHNIQUE: CT scan of the abdomen and pelvis performed with intravenous and oral contrast using bill tavo scanning technique with dynamic intravenous contrast injection. Images reviewed with lung, soft t issue, and bone windows. Reconstructed coronal and sagittal MPR images reviewed. Delayed images for e valuation of the urinary system also acquired. All images stored on PACS. All CT scanners at this facility use dose modulation, iterative reconstruction, and/or weight based d osing when appropriate to reduce radiation dose to as low as reasonably achievable (ALARA). [facility]: Dose Right [facility]: CareDose [facility]: Dose Right [facility]: Teradose 4D [facility]: Fluential CONTRAST TYPE AND DOSE: contrast/concentration: Isovue 350.00 mg/ml; Total Contrast Delivered: 72.0 ml; Total Saline Delivered: 66.0 ml RENAL FUNCTION: GFR > 60. RADIATION DOSE: CT Rad equipment meets quality standard of care and radiation dose reduction techniq ues were employed. CTDIvol: 4.4 - 4.5 mGy. DLP: 654 mGy-cm. . LIMITATIONS: None. FINDINGS: LOWER CHEST: See separate report of the CT of the chest. LIVER: Stable 1.5 cm low-density lesion in the dome. SPLEEN: Normal size. No focal lesions. PANCREAS: No masses. No significant calcifications. No adjacent inflammation or peripancreatic fluid collections. Pancreatic duct not dilated. GALLBLADDER: No identified stones by CT criteria. No inflammatory changes to suggest cholecystitis. ADRENAL GLANDS: No significant masses or asymmetry. RIGHT KIDNEY AND URETER: No solid masses. No significant calcifications. No hydronephrosis or hyd roureter. LEFT KIDNEY AND URETER: Solid mass lower pole 4.1 x 5.8 cm AP by transverse diameter, previously 4.1 x 5.5 cm. No significant calcifications. No hydronephrosis or hydroureter. AORTA AND VESSELS: No aneurysm. No dissection. Renal arteries, SMA, celiac without stenosis. RETROPERITONEUM: Retroperitoneal nodes measuring up to 1 cm in short axis unchanged. BOWEL AND PERITONEAL CAVITY: No obstruction. No visualized masses. No free fluid. No inflammatory ch anges or thickening of bowel wall. APPENDIX: Normal. PELVIS: No significant masses. Normal bladder. No free fluid. ABDOMINAL WALL: No masses. No hernias. BONES: No significant or acute findings. OTHER: No other significant finding. IMPRESSION: Stable exam. Solid left renal mass. Retroperitoneal adenopathy. TECHNICAL DOCUMENTATION: JOB ID: [id number] Quality ID # [id number]: Final reports with documentation of one or more dose reduction techniques (e.g., Au tomated exposure control, adjustment of the mA and/or kV according to patient size, use of iterative reconstruction technique) 2010 [employer]- All Rights Reserved Reading location - IP/workstation name: [email or web address]
== END ==
LOC: RAD 09:00
PROVIDERS: ATTEND Internal Medicine Hematology & Oncology
DX: N28.89 Other specified disorders of kidney and ureter (principal)
CPT/HCPCS: 71260; 74177

== ENCOUNTER 2018-12-01 08:20 | Emergency (ER) | payer OTHER ==
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
--- NOTE | 2018-12-01 10:46 | RADIOLOGY REPORT (SQ) ---
EXAM DESCRIPTION: KNEE RIGHT 4 VIEWS COMPLETED DATE/TIME: 12/01/2018 10:37 am REASON FOR STUDY: 10; left medial knee wound COMPARISON: None. NUMBER OF VIEWS: Four views. TECHNIQUE: AP, lateral, and both oblique radiographic images acquired of the right knee. LIMITATIONS: None. FINDINGS: MINERALIZATION: Normal. BONES: No acute fracture or dislocation. No worrisome bone lesions. JOINT: No effusion. SOFT TISSUES: No soft tissue swelling. No radio-opaque foreign body. OTHER: No other significant finding. IMPRESSION: NEGATIVE STUDY OF THE RIGHT KNEE. NO RADIOGRAPHIC EVIDENCE OF ACUTE INJURY. TECHNICAL DOCUMENTATION: JOB ID: [id number] [employer]- All Rights Reserved Reading location - IP/workstation name: [email or web address]
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
--- NOTE | 2018-12-01 12:42 | RADIOLOGY REPORT (SQ) ---
EXAM DESCRIPTION: CT RT UPPER EXTREMITY WITHOUT COMPLETED DATE/TIME: 12/01/2018 12:28 pm REASON FOR STUDY: 10; eval scapula fracture COMPARISON: Plain radiographs TECHNIQUE: Axial imaging performed through the right scapular with reformatted coronal and sagittal imaging windowed for bone and soft tissues. Images saved to PACS. 3D IMAGING: Were 3D images as MIP, SSD, or volume rendering performed at the work station? No All CT scanners at this facility use dose modulation, iterative reconstruction, and/or weight based d osing when appropriate to reduce radiation dose to as low as reasonably achievable (ALARA). [facility]: Dose Right [facility]: CareDose [facility]: Dose Right [facility]: Teradose 4D [facility]: [employer] LIMITATIONS: None. RADIATION DOSE: CT Rad equipment meets quality standard of care and radiation dose reduction techniq ues were employed. CTDIvol: 12.4 mGy. DLP: 273 mGy-cm. mGy. FINDINGS: SOFT TISSUES: No obvious swelling or foreign body. BONES: There are fractures at the base of the coracoid and distal acromion. Distraction of the corac oid. MINERALIZATION: Normal. OTHER: No other significant finding. IMPRESSION: Fractures base of the coracoid and in the distal acromion. TECHNICAL DOCUMENTATION: JOB ID: [id number] Quality ID # [id number]: Final reports with documentation of one or more dose reduction techniques (e.g., Au tomated exposure control, adjustment of the mA and/or kV according to patient size, use of iterative reconstruction technique) 2010 [employer]- All Rights Reserved Reading location - IP/workstation name: [email or web address]
[2018-12-01] MEDS ORDERED: CEPHALEXIN 500 MG CAPSULE PO ONE (12:48)
[2018-12-01 13:03] VITALS: BP 125/99
== END 2018-12-01 13:19 | disposition home or self-care (01) ==
LOC: ER 08:20
DX: S42.101A Fracture of unspecified part of scapula, right shoulder, initial encounter for closed fracture (principal); S92.405A Nondisplaced unspecified fracture of left great toe, initial encounter for closed fracture; S80.211A Abrasion, right knee, initial encounter; V28.4XXA Motorcycle driver injured in noncollision transport accident in traffic accident, initial encounter; F17.200 Nicotine dependence, unspecified, uncomplicated
CPT/HCPCS: 71046; 72170; 99284